=== PATIENT | male | born 1955 | race Caucasian/White ===

== ENCOUNTER 2023-02-18 09:16 | Outpatient (OUT) | payer MEDICARE, OTHER, SELFPAY ==
[2023-02-18 09:47] LABS: Estimated Average Glucose 114 mg/dL; Glycohemoglobin A1C 5.6 % (4.5-6.2)
[2023-02-18 09:59] LABS: Basophils Absolute Auto 0.1 10^3/uL (0.0-0.1); Basophils Percent Auto 1.2 % (0.2-2.0); Eosinophils Absolute Auto 0.2 10^3/uL (0.0-0.7); Hematocrit 49.2 % (42.0-54.0); Hemoglobin 16.8 g/dL (14.0-18.0); Immature Granulocytes Abs Auto 0.04 10^3/uL (0.00-0.03); Immature Granulocytes Pct Auto 0.7 % (0.0-0.5); Lymphocytes Absolute Auto 1.2 10^3/uL (1.2-3.8); Lymphocytes Percent Auto 20.8 % (20.5-60.0); Mean Corpuscular HGB Conc 34.1 g/dL (29.9-35.2); Mean Corpuscular Hemoglobin 33.2 pg (25.9-34.0); Mean Corpuscular Volume 97.2 fL (80.0-94.0); Mean Platelet Volume 10.2 fL (9.5-13.5); Monocytes Absolute Auto 0.6 10^3/uL (0.3-0.8); Monocytes Percent Auto 10.8 % (1.7-12.0); Neutrophils Absolute Auto 3.8 10^3/uL (1.4-6.5); Neutrophils Percent Auto 63.5 % (43.0-75.0); Platelet Count 216 10^3/uL (150-450); Red Blood Count 5.06 10^6/uL (4.70-6.10); White Blood Count 5.9 10^3/uL (4.0-11.0)
[2023-02-18 11:00] LABS: Alanine Aminotransferase 20 U/L (16-63); Albumin Globulin Ratio 1.1; Albumin Level 3.7 g/dL (3.4-5.0); Alkaline Phosphatase 98 U/L (46-116); Anion Gap 11.6; Aspartate Amino Transferase 23 U/L (15-37); BUN Creatinine Ratio 15.8; Bilirubin Total 0.7 mg/dL (0.2-1.0); Calcium 9.2 mg/dL (8.5-10.1); Carbon Dioxide 24.7 mmol/L (21.0-32.0); Chloride 107 mmol/L (98-107); Estimated GFR (African America >60 (>=60); Estimated GFR (Non-African Ame >60 (>=60); Globulin 3.3 g/dL; Glucose 109 mg/dL (74-106); Potassium 4.3 mmol/L (3.5-5.1); Sodium 139 mmol/L (136-145)
[2023-02-18 11:01] LABS: Prostate Specific Antigen Scrn 1.34 ng/mL (<=4.00)
[2023-02-18 11:09] LABS: Cholesterol 139 mg/dL (<=200); Free T3 2.31 pg/mL (2.18-3.98); HDL Cholesterol 47 mg/dL (40-60); LDL Cholesterol Calculated 69.4 mg/dL; Thyroid Stimulating Hormone 1.736 uIU/mL (0.358-3.740); Triglycerides 113 mg/dL (<=150); VLDL CHOLESTEROL 22.6 mg/dL
== END 2023-02-18 09:17 | disposition home or self-care (01) ==
LOC: LAB 09:21
PROVIDERS: PCP Family Medicine; Visit Provider Family Medicine
DX: R41.82 Altered mental status, unspecified (principal); R40.20 Unspecified coma; G93.9 Disorder of brain, unspecified; E78.5 Hyperlipidemia, unspecified; R73.09 Other abnormal glucose; Z12.5 Encounter for screening for malignant neoplasm of prostate
CPT/HCPCS: 36415; 80053; 80061; 83036; 84436; 84443; 84481; 85025; G0103

== ENCOUNTER 2023-02-23 13:03 | Outpatient (OUT) | payer MEDICARE, OTHER, SELFPAY ==
--- NOTE | 2023-02-23 13:15 | MR_ITS ---
The [address] [address] Patient Name: STEVE RASCON MRN: [id number] date: 1955 Sex: M Assigned Patient Location: MRI Current Patient Location: MRI Accession/Order Number: [id number] Exam Date: 02/23/2023 14:07 Report Date: 02/24/2023 09:24 At the request of: FUNMILAYO GARCIA Procedure: MR head/brain wo/w con MRI BRAIN WITH AND WITHOUT CONTRAST, 02/23/2023. HISTORY: Altered mental status. Brain mass. COMPARISON: MRI brain with and without contrast, 12/05/2020. TECHNIQUE: Multiplanar, multisequence MRI imaging of the brain with and without contrast. FINDINGS: Paranasal sinuses clear. Mastoid air cells clear. Nasopharynx normal. 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 Orbital contents unremarkable. Moderate brain atrophy stable. No hydrocephalus. No extra-axial fluid collections. No mass effect. Mild chronic microvascular ischemic changes in the cerebral white matter are stable. No diffusion restriction. No evidence of acute ischemic infarction. T2 gradient images show no hemorrhagic lesions. No pathologic enhancement in the brain. There is a small enhancing dural based extra-axial lesion over the right frontal lobe measuring approximately 7 x 8 x 10 mm. This is slightly larger previously measuring 5 x 7 x 10 mm. No mass effect of the brain. No new intracranial masses. MR/MR head/brain wo/w con IMPRESSION: 1. Small meningioma over the right frontal lobe measuring 10 mm in greatest dimension is slightly larger than on the previous exam. No mass effect of the brain or vasogenic edema in the brain. 2. No new masses. 3. Moderate brain atrophy and mild chronic microvascular ischemic changes stable. No acute infarction. No hydrocephalus. Electronically authenticated by: REGINA BISHOP Date: 02/24/2023 09:24
--- NOTE | 2023-02-23 13:18 | US_ITS ---
[address] [address] Patient Name: STEVE RASCON MRN: [id number] date: 1955 Sex: M Assigned Patient Location: MRI Current Patient Location: MRI Accession/Order Number: [id number] Exam Date: 02/23/2023 13:20 Report Date: 02/23/2023 20:03 At the request of: FUNMILAYO GARCIA Procedure: US carotid duplex BI EXAMINATION: US carotid duplex BI HISTORY: Bilateral Occlusive Disease COMPARISON: No relevant comparison available. TECHNIQUE: Duplex Doppler ultrasound analysis of carotid and vertebral arteries. . Bilateral carotid arterial duplex examination was performed using B-mode, color flow and spectral analysis. Carotid stenosis is reported according to validated velocity parameters, similar to NASCET criteria. FINDINGS: RIGHT CAROTID ARTERY Mild atherosclerotic plaque Subclavian: PSV: 81.1 cm/s cm/s EDV: 7.8 cm/s cm/s CCA: Prox: PSV: 58.6 cm/s cm/s EDV: 7.2 cm/s cm/s Mid: PSV: 59.0 cm/s cm/s EDV: 9.2 cm/s cm/s Distal: PSV: 59.7 cm/s cm/s EDV: 9.9 cm/s cm/s BULB: PSV: 27.0 cm/s cm/s EDV: 5.6 cm/s cm/s ICA: Prox: PSV: 47.6 cm/s cm/s EDV: 11.3 cm/s cm/s Mid: PSV: 58.3 cm/s cm/s EDV: 14.2 cm/s cm/s Distal: PSV: 52.6 cm/s cm/s EDV: 8.5 cm/s cm/s ECA: PSV: 82.2 cm/s cm/s EDV: 6.3 cm/s cm/s VERTEBRAL: PSV: 49.6 cm/s cm/s EDV: 8.6 cm/s cm/s ICA/CCA ratio: PSV: 1.0 EDV: 1.4 LEFT CAROTID ARTERY mild atherosclerotic plaque Subclavian: PSV: 94.0 cm/s cm/s EDV: 12.6 cm/s CCA: Prox: PSV: 92.7 cm/s cm/s EDV: 13.7 cm/s Mid: PSV: 96.5 cm/s cm/s EDV: 15.0 cm/s Distal: PSV: 66.8 cm/s cm/s EDV: 12.4 cm/s BULB: PSV: 45.9 cm/s cm/s EDV: 9.2 cm/s ICA: Prox: PSV: 56.4 cm/s cm/s EDV: 13.6 cm/s Mid: PSV: 75.4 cm/s cm/s EDV: 16.0 cm/s Distal: PSV: 74.3 cm/s cm/s EDV: 17.1 cm/s ECA: PSV: 108.1 cm/s cm/s EDV: 6.3 cm/s VERTEBRAL: PSV: 48.8 cm/s cm/s EDV: 10.4 cm/s ICA/CCA ratio: PSV: 1.1 EDV: 1.3 IMPRESSION: 0-49% flow stenosis bilateral internal carotid arteries Spectral Doppler US Thresholds (Reference: Ceasar EG, et al. Radiology 2000; 214:247-252) Stenosis (%) PSV (cm/sec) VICA/VCCA 0-49 <150 <2.5 50-69 150-225 2.5-4.0 >70 >225 >4.0 Electronically authenticated by: RADHA WELLER Date: 02/23/2023 20:03
== END 2023-02-23 13:04 | disposition home or self-care (01) ==
LOC: MRI 13:03
PROVIDERS: PCP Family Medicine; Visit Provider Family Medicine
DX: R41.82 Altered mental status, unspecified (principal); R40.20 Unspecified coma; G93.9 Disorder of brain, unspecified; J44.9 Chronic obstructive pulmonary disease, unspecified; I65.23 Occlusion and stenosis of bilateral carotid arteries
CPT/HCPCS: 70553; 93880; A9575

== ENCOUNTER 2023-02-27 12:48 | Outpatient (OUT) | payer MEDICARE, OTHER, SELFPAY ==
--- NOTE | 2023-02-27 13:25 | CA_ITS ---
Patient: STEVE RASCON Exam Date: 02/27/2023 : 1955 Gender:M Ordering : DR Shun Dorsey . Admission #: [id number] Family : DR LANA SAAVEDRA D.O. Order #: [id number] CLICK HERE TO VIEW EXAM ECHOCARDIOGRAM REPORT PROCEDURE: CA ECHO DOPPLER COMPLETE INDICATIONS: Loss of consciousness, altered mental status change, mechanical mitral and aortic valve, hypertension, smoker, COPD COMPARISON: None. DESCRIPTION: COMPLETE ECHOCARDIOGRAM Real-time transthoracic echocardiography with 2D, M-mode, spectral and color flow Doppler performed. QUALITY: Technical quality was fair. LEFT VENTRICLE: Normal chamber size. Mild concentric left ventricular hypertrophy. Normal systolic function. LV EF: Normal left ventricular ejection fraction, (>55%). DIASTOLIC: ATRIAL SEPTUM: LEFT ATRIUM: Mildly dilated. RIGHT ATRIUM: Normal chamber size. RIGHT VENTRICLE: Normal chamber size. Normal right ventricular systolic function. TRICUSPID VALVE: Normal mobility and thickness. No stenosis with no regurgitation. MITRAL VALVE: Mechanical valve with normal flow. No mitral regurgitation. AORTIC VALVE: Mechanical valve with normal flow. Trivial aortic regurgitation. AORTIC ROOT: Normal diameter and appearance. PULMONIC VALVE: Normal thickness and mobility. No stenosis. No regurgitation. PERICARDIUM: No evidence of pericardial effusion. IVC: Collapses with inspirations. PLEURA: CONCLUSION: 1. Mild concentric left ventricular hypertrophy. Normal left ventricular systolic function. LVEF is 55 to 60%. 2. Normal right ventricular size and systolic function. 3. Mechanical valve in the aortic position with normal Doppler flows and no significant regurgitation. 4. Mechanical valve in the mitral position with normal Doppler flows and no significant regurgitation. 5. No pericardial effusion. Adult Echocardiography Procedure Report Left Ventricle LVEDD (3.7 - 5.6 cm): 3.88 cm LVESD (2.2 - 4.0 cm): 2.95 cm LVIVS thickness (0.6 - 1.2 cm): 1.20 cm LVPW thickness (0.5 - 1.0 cm): 1.14 cm LVOT Max Gradient: 2.33 mm[Hg] LVOT Area (cm2): 0.76 m/s Peak Velocity (LVOT): 0.76 m/s Mean Velocity (LVOT): 0.51 m/s LVOT Diameter 1.38 cm Left Atrium LA Volume Index (2D A2C): 30.81 ml/m2 Mitral Valve MV E to A Ratio: 1.01 Mitral Valve A-Wave Peak Velocity: 1.08 m/s Mitral Valve E-Wave Peak Velocity: 1.09 m/s Right Ventricle Aorta AO Root Diam: 3.25 cm Aortic Valve AoV Area (Peak [place]): 0.72 cm2, 0.72 cm2 AoV Area (VTI): 0.74 cm2, 0.74 cm2 Peak Velocity(Antegrade Flow): 1.60 m/s Peak Gradient(Antegrade Flow): 10.18 mm[Hg] Mean Velocity(Antegrade Flow): 1.07 m/s Mean Gradient(Antegrade Flow): 5.32 mm[Hg] Velocity Time Integral: 30.46 cm Tricuspid Valve Pulmonic Valve Mean Gradient: 1.55 mm[Hg] Mean Velocity: 0.60 m/s Peak Velocity: 0.77 m/s, 0.83 m/s Peak Gradient: 2.74 mm[Hg], 2.36 mm[Hg] Right Atrium Right Atrium Systolic Pressure: 28.12 ml, 28.12 ml Dictated by: Dusty Boyle M.D. on 03/04/2023 at 17:35 Approved by: Dusty Boyle M.D. on 03/04/2023 at 17:47
--- NOTE | 2023-02-27 13:26 | CT_ITS ---
[address] [address] Patient Name: STEVE RASCON MRN: [id number] date: 1955 Sex: M Assigned Patient Location: CARD Current Patient Location: CARD Accession/Order Number: [id number] Exam Date: 02/27/2023 13:40 Report Date: 02/27/2023 14:39 At the request of: FUNMILAYO GARCIA Procedure: CT lung screening low-dose EXAMINATION: CT lung screening low-dose HISTORY: COPD J44.9 COMPARISON: 12/05/2020 TECHNIQUE: Axial, Coronal, and Sagittal images were created without the administration of IV contrast material. Dose reduction techniques were achieved by using automated exposure control and/or adjustment of mA and/or kV according to patient size and/or use of iterative reconstruction technique. FINDINGS: LUNGS: Moderate diffuse centrilobular emphysema with an upper lobe predominance. A few scattered ill-defined densities are noted the largest is in the right middle lobe measuring 1.2 x 0.7 cm. PLEURA: No mass, effusion, or pneumothorax. VASCULATURE: No abnormality. OLIVIA: No mass or pathologic adenopathy. MEDIASTINUM: No mass or pathologic adenopathy. CARDIAC: No enlargement or pericardial effusion. Moderate coronary atherosclerosis. Mitral and aortic valve replacements AORTA: No aortic aneurysm. Moderate diffuse atherosclerosis CHEST WALL: No mass or axillary adenopathy BONES: No bone lesion or fracture. LIMITED ABDOMEN: Surgical clips from cholecystectomy OTHER: Negative. CT/CT lung screening low-dose IMPRESSION: Scattered patchy opacities slightly increased in the right middle lobe. 6 month follow-up is recommended to document stability LUNG SCREENING: Lung-RADS Category 3- Probably benign. Probably benign finding(s)- short term follow up suggested; includes nodules with a low likelihood of becoming a clinically active cancer. Six month LDCT. Electronically authenticated by: RADHA WELLER Date: 02/27/2023 14:39
== END 2023-02-27 12:49 | disposition home or self-care (01) ==
LOC: CARD 12:48
PROVIDERS: PCP Family Medicine; Visit Provider Family Medicine
DX: R41.82 Altered mental status, unspecified (principal); R40.20 Unspecified coma; G93.9 Disorder of brain, unspecified; J43.2 Centrilobular emphysema; Z95.2 Presence of prosthetic heart valve; I25.10 Atherosclerotic heart disease of native coronary artery without angina pectoris; F17.210 Nicotine dependence, cigarettes, uncomplicated
CPT/HCPCS: 71271; 93306

== ENCOUNTER 2023-07-10 11:50 | Outpatient (OUT) | payer MEDICARE, OTHER, SELFPAY ==
--- NOTE | 2023-07-10 12:06 | MR_ITS ---
The [address] [address] Patient Name: STEVE RASCON MRN: [id number] date: 1955 Sex: M Assigned Patient Location: LAB Current Patient Location: LAB Accession/Order Number: [id number] Exam Date: 07/10/2023 12:10 Report Date: 07/10/2023 14:39 At the request of: FUNMILAYO DORSEY Procedure: MR head/brain wo/w con EXAM: MR head/brain wo/w con HISTORY: Altered Mental Status R41.82 COMPARISON: MRI brain 02/23/2023 TECHNIQUE: Multisequence MRI brain was performed with and without intravenous contrast. FINDINGS: There is a small focus of restricted diffusion in the left putamen associated with hyperintense T2/FLAIR signal abnormality. No additional restricted diffusion is identified elsewhere. There is no midline shift, mass effect, or abnormal extraaxial fluid collections. Redemonstrated is a 1 x 0.8 cm dural based right frontal extra-axial homogeneously enhancing well-defined lesion, unchanged since 02/23/2023, in keeping with a small meningioma. There are no new abnormal parenchymal or leptomeningeal enhancement. The cortical sulci and ventricular system are mildly enlarged, consistent with age appropriate cerebral atrophy. Multiple nonspecific scattered foci of T2/FLAIR signal abnormality are identified in the subcortical and periventricular white matter, likely reflect chronic microvascular ischemic changes. The major intracranial flow voids are visualized. The cerebellar tonsils are normal in position. The orbits demonstrate no suspicious enhancement or any focal lesions. The paranasal sinuses and mastoid air cells are clear. The calvarium and extracranial soft tissues are unremarkable. MR/MR head/brain wo/w con IMPRESSION: Acute lacunar infarct in the left putamen. A small right frontal meningioma without mass effect, unchanged since 02/23/2023. No new abnormal intracranial enhancement. Mild chronic microvascular ischemia and involutional changes. Critical finding was conveyed to Dr. Funmilayo Dorsey at the time of dictation. Electronically authenticated by: DEMETRIA KIM Date: 07/10/2023 14:39
[2023-07-10 12:21] LABS: Estimated GFR (African America >60 (>=60); Estimated GFR (Non-African Ame >60 (>=60)
== END 2023-07-10 11:51 | disposition home or self-care (01) ==
LOC: LAB 11:50
PROVIDERS: PCP Family Medicine; Visit Provider Family Medicine
DX: R41.82 Altered mental status, unspecified (principal); I63.81 Other cerebral infarction due to occlusion or stenosis of small artery; D32.0 Benign neoplasm of cerebral meninges; I67.82 Cerebral ischemia
CPT/HCPCS: 36415; 70553; 82565; A9575

== ENCOUNTER 2023-07-15 06:57 | Outpatient (OUT) | payer MEDICARE, OTHER, SELFPAY ==
--- NOTE | 2023-07-15 06:57 | PCN_ITS ---
EEG ? Procedure Date:? 07/15/2023 ? Routine EEG performed on a 68-year-old male using standard 10/20 lead placement in the [employer] system.? All data was obtained digitally and is available for reformatting and remontaging.? ? There is a posterior dominant rhythm that at times reaches the 9 Hz alpha range and 10-20 microvolt amplitude range recorded in the occipital leads symmetrically during rest and wakefulness.? This rhythm attenuates with eye opening.? There is beta activity in the 15-20 Hz range and less than 20 microvolt amplitude range, recorded in the frontal sensory regions infrequently during the record.? ? There is attenuation of the background rhythm, rolling eye movements, attenuation of muscle artifact, generalized slowing, consistent with stage 1 sleep, which occurred in approximately 20% of the record.? ? There is no epileptiform activity recorded during the record.? There are no seizures recorded during the record.? ? There is no abnormal slowing recorded during the record. ? IMPRESSION:? This is a normal routine EEG. MTDD
--- NOTE | 2023-07-15 08:13 | CT_ITS ---
The [address] [address] Patient Name: STEVE RASCON MRN: [id number] date: 1955 Sex: M Assigned Patient Location: CARD Current Patient Location: CARD Accession/Order Number: [id number] Exam Date: 07/15/2023 08:42 Report Date: 07/15/2023 10:33 At the request of: FUNMILAYO GARCIA Procedure: CT angio neck EXAMINATION: CT angio neck HISTORY: Altered Mental Status R41.82 COMPARISON: None. TECHNIQUE: Contrast enhanced neck CT arteriogram was performed. Scanning performed during the arterial phase from the thoracic inlet to the [place]. 3D reconstructions were rendered on a separate 3D workstation to evaluate vascular anatomy. Dose reduction techniques were achieved by using automated exposure control and/or adjustment of mA and/or kV according to patient size and/or use of iterative reconstruction technique. Carotid stenosis was measured utilizing NASCET criteria. FINDINGS: NECK FINDINGS: No acute soft tissue abnormalities in the neck. Airway is patent. Normal thyroid. Mild biapical scarring. Centrilobular emphysematous changes. Multilevel cervicothoracic spondylotic changes. ACDF at C5-C6. VASCULATURE FINDINGS: Arch and Subclavian Arteries: Standard three vessel arch. Subclavian arteries are patent bilaterally. Mild scattered mixed atherosclerotic plaque without high-grade narrowing. Common Carotids: Normal bilaterally. ICAs: Patent bilaterally to the petrous segments. Vertebral Arteries: Normal to the confluence with the basilar artery. Left dominant vertebral system. Basilar Artery: Partially visualized segments are normal. CT/CT angio neck IMPRESSION: No large vessel arterial occlusion, high-grade narrowing, or substantial luminal irregularity in the neck. Electronically authenticated by: PATRICIA GARCIA Date: 07/15/2023 10:33
== END 2023-07-15 06:58 | disposition home or self-care (01) ==
LOC: CARD 06:57
PROVIDERS: PCP Family Medicine; Visit Provider Family Medicine
DX: R41.82 Altered mental status, unspecified (principal)
CPT/HCPCS: 70498; 95819; Q9967

== ENCOUNTER 2024-04-12 13:55 | Outpatient (OUT) | payer MEDICARE, OTHER, SELFPAY ==
[2024-04-12 14:20] LABS: Basophils Absolute Auto 0.1 10^3/uL (0.0-0.1); Eosinophils Absolute Auto 0.1 10^3/uL (0.0-0.7); Eosinophils Percent Auto 2.4 % (0.9-7.0); Hematocrit 47.7 % (42.0-54.0); Hemoglobin 16.5 g/dL (14.0-18.0); Immature Granulocytes Abs Auto 0.02 10^3/uL (0.00-0.03); Immature Granulocytes Pct Auto 0.3 % (0.0-0.5); Lymphocytes Absolute Auto 1.7 10^3/uL (1.2-3.8); Lymphocytes Percent Auto 28.1 % (20.5-60.0); Mean Corpuscular HGB Conc 34.6 g/dL (29.9-35.2); Mean Corpuscular Hemoglobin 32.9 pg (25.9-34.0); Mean Corpuscular Volume 95.2 fL (80.0-94.0); Mean Platelet Volume 10.2 fL (9.5-13.5); Monocytes Absolute Auto 0.7 10^3/uL (0.3-0.8); Monocytes Percent Auto 11.9 % (1.7-12.0); Neutrophils Absolute Auto 3.3 10^3/uL (1.4-6.5); Neutrophils Percent Auto 56.3 % (43.0-75.0); Platelet Count 218 10^3/uL (150-450); Red Blood Count 5.01 10^6/uL (4.70-6.10); Red Cell Distribution Width 13.7 % (11.0-15.0); White Blood Count 5.9 10^3/uL (4.0-11.0)
--- NOTE | 2024-04-12 14:28 | CT_ITS ---
[address] [address] Patient Name: STEVE RASCON MRN: [id number] date: 1955 Sex: M Assigned Patient Location: CT Current Patient Location: Accession/Order Number: [id number] Exam Date: 04/12/2024 14:24 Report Date: 04/13/2024 12:39 At the request of: FUNMILAYO GARCIA Procedure: CT lung screening low-dose EXAMINATION: CT lung screening low-dose HISTORY: Chronic Obstructive Pulmonary Disease COMPARISON: CT LUNG CANCER SCREENING 02/27/2023 TECHNIQUE: Axial, Coronal, and Sagittal images were created without the administration of IV contrast material. Dose reduction techniques were achieved by using automated exposure control and/or adjustment of mA and/or kV according to patient size and/or use of iterative reconstruction technique. FINDINGS: LUNGS: Mild/moderate emphysematous changes. No suspicious nodules or acute infiltrates. PLEURA: No mass, effusion, or pneumothorax. VASCULATURE: No abnormality. OLIVIA: No mass or pathologic adenopathy. MEDIASTINUM: No mass or pathologic adenopathy. CARDIAC:Prior aortic valve and mitral valve replacement. No enlargement, pericardial thickening, or pericardial effusion. Coronary Artery calcifications: Coronary calcifications are mild. AORTA: No aneurysm or dissection. CHEST WALL: No mass or axillary adenopathy BONES: Mechanical fusion of the visible lower cervical spine. No bone lesion or fracture. LIMITED ABDOMEN: No suspicious findings. Limited images of the upper abdomen. OTHER: Negative. CT/CT lung screening low-dose IMPRESSION: 1. Lung-RADS Category 1 Negative. No nodules and definitely benign nodules. Continue annual screening with LDCT in 12 months. Electronically authenticated by: ELIZABETH GARCIA Date: 04/13/2024 12:39
[2024-04-13 09:40] LABS: Alanine Aminotransferase 21 U/L (16-63); Albumin Globulin Ratio 1.2; Albumin Level 3.7 g/dL (3.4-5.0); Alkaline Phosphatase 103 U/L (46-116); Anion Gap 12.7; Aspartate Amino Transferase 19 U/L (15-37); Bilirubin Total 0.8 mg/dL (0.2-1.0); Chloride 105 mmol/L (98-107); Chol HDL Ratio 2.3; Cholesterol 122 mg/dL (<=200); Estimated GFR (African America >60 (>=60); Estimated GFR (Non-African Ame >60 (>=60); Free T3 2.55 pg/mL (2.18-3.98); Globulin 3.1 g/dL; Glucose 85 mg/dL (74-106); HDL Cholesterol 53 mg/dL (40-60); LDL Cholesterol Calculated 52.6 mg/dL; Potassium 3.7 mmol/L (3.5-5.1); Sodium 140 mmol/L (136-145); Thyroid Stimulating Hormone 1.564 uIU/mL (0.358-3.740); Total Protein 6.8 g/dL (6.4-8.2); Triglycerides 82 mg/dL (<=150); VLDL CHOLESTEROL 16.4 mg/dL
[2024-04-13 09:57] LABS: Prostate Specific Antigen Scrn 1.23 ng/mL (<=4.00)
[2024-04-13 10:46] LABS: Estimated Average Glucose 103 mg/dL; Glycohemoglobin A1C 5.2 % (4.5-6.2)
== END 2024-04-12 13:56 | disposition home or self-care (01) ==
LOC: CT 13:56
PROVIDERS: PCP Family Medicine; Visit Provider Family Medicine
DX: J44.9 Chronic obstructive pulmonary disease, unspecified (principal); Z12.2 Encounter for screening for malignant neoplasm of respiratory organs; F17.210 Nicotine dependence, cigarettes, uncomplicated; E78.5 Hyperlipidemia, unspecified; I25.810 Atherosclerosis of coronary artery bypass graft(s) without angina pectoris; I10 Essential (primary) hypertension; E78.2 Mixed hyperlipidemia; G93.9 Disorder of brain, unspecified; R53.83 Other fatigue; R73.09 Other abnormal glucose; E03.9 Hypothyroidism, unspecified; Z12.5 Encounter for screening for malignant neoplasm of prostate
CPT/HCPCS: 36415; 71271; 80053; 80061; 83036; 84436; 84443; 84481; 85025; G0103

== ENCOUNTER 2024-04-17 17:04 | Emergency (ER) | payer MEDICARE, OTHER, SELFPAY ==
[2024-04-17] VITALS (16 sets, daily range): BP systolic 130–169; BP diastolic 56–75; PULSE 62–83; TEMP 36.6; O2SAT 94–98; BMI 22.6
--- NOTE | 2024-04-17 17:06 | ECG_ITS ---
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
--- NOTE | 2024-04-17 17:13 | ED_ITS ---
HPI - Seizure General Chief Complaint: Seizure Stated Complaint: Seizure Time Seen by Provider: 04/17/24 17:06 Source: patient Mode of arrival: ambulance History of Present Illness HPI Narrative: 69-year-old male with history of seizure disorder is coming to us by the EMS after he had a seizure before arrival, by the time the EMS got there to the home of the patient the patient was postictal, upon arrival to the ER the patient is awake not having any complaint and he is oriented x 3, the patient did not mention that he woke up this morning with vertigo which she have a history of but had not had any episodes of vertigo for the last 4 years, the patient took some meclizine and he did not take his medication for seizure which is Keppra and he was sleeping all day when he woke up with a seizure The patient denies any fever chills or any other complaints He also denies any symptoms of being sick over the last few days as well He mentioned that he also have a chronic that there is no changes in that over the last few days Related Data Home Medications ?Medication ?Instructions ?Recorded ?Confirmed amlodipine 5 mg tablet mg 04/17/24 atorvastatin 40 mg tablet mg 04/17/24 levetiracetam 500 mg tablet mg PO 04/17/24 meclizine 25 mg tablet mg 04/17/24 warfarin 4 mg tablet mg 04/17/24 Allergies Allergy/AdvReac Type Severity Reaction Status Date / Time No Known Drug Allergies Allergy Verified 04/17/24 17:09 Review of Systems ROS Status of ROS 10 or more systems reviewed and unremark able except as noted in history and below PFSH PFSH Social History Little interest or pleasure in doing things: not at all Feeling down, depressed, or hopeless: not at all Exam Narrative Exam Narrative: Nurses notes and vital signs reviewed and patient is not hypoxic. General: Well-appearing and in no apparent distress. Skin: Warm, dry, no pallor noted. No rash. Head: Normocephalic, atraumatic. Neck: Supple, non-tender. Eye: Pupils are equal, round and EOMI. No scleral icterus. Ears, Nose, Mouth, and Throat: TM are clear, no nasal mucosal hypertrophy. Oral mucosa is moist, no posterior oropharynx erythema, uvula is mid-line Cardiovascular: Regular Rate and Rhythm without murmur, gallop or rub. Respiratory: No accessory muscle use or respiratory distress. Lungs are clear to auscultation, no wheezing, rales or rhonchi Chest Wall: no tenderness Back: No midline thoracic or lumbar vertebral tenderness. No CVA tenderness Musculoskeletal: normal ROM, no calf or popliteal tenderness, no lower extremity edema/swelling GI: Abdomen is soft, non-distended. Normal bowel sounds. No masses appreciated. No tenderness to palpation. No rebound, guarding, or rigidity noted. Neurological: A&O x4. No cranial nerve dysfunction observed. No truncal ataxia. Moves all extremities. Sensation intact. Psychiatric: Cooperative and interactive. Normal mood and affect. Constitutional Vital Signs, click to edit/add: Last Vital Signs Temp 98 F 04/17/24 17:10 Pulse 71 04/17/24 18:20 Resp 16 04/17/24 18:20 BP 169/69 H 04/17/24 17:14 Pulse Ox 96 04/17/24 18:20 O2 Del Method Room Air 04/17/24 17:10 Course Vital Signs Vital signs: Vital Signs Blood Pressure 146/75 H 04/17/24 17:07 Temperature 98 F 04/17/24 17:10 Pulse Rate 71 04/17/24 18:20 Respiratory Rate 16 04/17/24 18:20 Blood Pressure 169/69 H 04/17/24 17:14 Pulse Oximetry 96 04/17/24 18:20 Oxygen Delivery Method Room Air 04/17/24 17:10 MDM - Seizure MDM Narrative Medical decision making narrative: Right now the patient have no complaints his EKG in the ER showing sinus rhythm with a heart rate of [address] elevation or depression The patient CBC and chemistry showed no acute pathology as well as the CAT scan of the brain The patient have no vertigo anymore and he had no complaint in the ER while eleonora lopes monitored The patient was provided 1 dose of IV Keppra in the ER he will be discharged to continue taking his medication at home The patient is to follow up with primary care physician in next 2-3 days or to return to the emergency department should any of the signs or symptoms worsen or new symptoms develop. The patient agrees with the following Diagnosis and Treatment plan and the patient will be discharged home. Lab Data Labs: Lab Results 04/17/24 Range/Units 17:21 WBC 8.3 (4.0-11.0) 10^3/uL RBC 5.11 (4.70-6.10) 10^6/uL Hgb 17.4 (14.0-18.0) g/dL Hct 48.3 (42.0-54.0) % MCV 94.5 H (80.0-94.0) fL MCH 34.1 H (25.9-34.0) pg MCHC 36.0 H (29.9-35.2) g/dL RDW 13.4 (11.0-15.0) % Plt Count 210 (150-450) 10^3/uL MPV 10.9 (9.5-13.5) fL Neut % (Auto) 87.8 H (43.0-75.0) % Lymph % (Auto) 7.4 L (20.5-60.0) % [place] % (Auto) 4.0 (1.7-12.0) % Eos % (Auto) 0.0 L (0.9-7.0) % Baso % (Auto) 0.4 (0.2-2.0) % Neut # (Auto) 7.3 H (1.4-6.5) 10^3/uL Lymph # (Auto) 0.6 L (1.2-3.8) 10^3/uL [place] # (Auto) 0.3 (0.3-0.8) 10^3/uL Eos # (Auto) 0.0 (0.0-0.7) 10^3/uL Baso # (Auto) 0.0 (0.0-0.1) 10^3/uL Abs Immat Gran (auto) 0.03 (0.00-0.03) 10^3/uL Imm/Tot Granulo (auto) 0.4 (0.0-0.5) % PT 21.2 H (9.0-11.6) sec INR 2.16 Sodium 137 (136-145) mmol/L Potassium 3.9 (3.5-5.1) mmol/L Chloride 103 (98-107) mmol/L Carbon Dioxide 25.2 (21.0-32.0) mmol/L Anion Gap 12.7 BUN 16.0 (7.0-18.0) mg/dL Creatinine 0.97 (0.70-1.30) mg/dL Est GFR ( Amer) >60 (>=60) Est GFR (Non-Af Amer) >60 (>=60) BUN/Creatinine Ratio 16.5 Glucose 140 H (74-106) mg/dL Calcium 9.3 (8.5-10.1) mg/dL Magnesium 1.9 (1.8-2.4) mg/dL Total Bilirubin 0.7 (0.2-1.0) mg/dL AST 16 (15-37) U/L ALT 16 (16-63) U/L Alkaline Phosphatase 123 H (46-116) U/L Total Protein 7.1 (6.4-8.2) g/dL Albumin 3.7 (3.4-5.0) g/dL Globulin 3.4 g/dL Albumin/Globulin Ratio 1.1 Discharge Plan Discharge Stand Alone Forms: Portal Instructions Chief Complaint: Seizure Clinical Impression: Seizure Patient Disposition: Home, Self-Care Time of Disposition Decision: 18:59 Condition: Good Prescriptions / Home Meds: No Action atorvastatin 40 mg tablet levetiracetam 500 mg tablet PO amlodipine 5 mg tablet warfarin 4 mg tablet meclizine 25 mg tablet Print Language: Iranian Instructions: Epilepsy in Older Adults (ED) Referrals: Shun Dorsey MD [Primary Care Provider] - 1 week
--- NOTE | 2024-04-17 17:18 | CT_ITS ---
The [address] [address] Patient Name: STEVE RASCON MRN: [id number] date: 1955 Sex: M Assigned Patient Location: ER Current Patient Location: [facility] Accession/Order Number: [id number] Exam Date: 04/17/2024 17:55 Report Date: 04/17/2024 19:02 At the request of: WINIFRED MILLS Procedure: CT head/brain wo con CT head without contrast, 04/17/2024. HISTORY: Seizure. COMPARISON: MRI brain, 07/10/2023. TECHNIQUE: Noncontrast axial CT images obtained through the head. Reconstructions obtained in the sagittal and coronal planes. Dose reduction techniques were achieved by using automated exposure control and/or adjustment of mA and/or kV according to patient size and/or use of iterative reconstruction technique. FINDINGS: The paranasal sinuses are clear. Mastoid air cells are clear. Middle ear cavities clear. Skull base intact. No skull lesion. Orbital contents normal. Extracranial soft tissue structures are unremarkable. Small chronic lacunar infarct in the body of the caudate nucleus on the left. Chronic lacunar infarct in the lentiform nucleus on the left. No hydrocephalus. No extraaxial fluid collection or mass effect. Rios matter and white matter differentiation appears normal. No hemorrhage. There is a small partially calcified meningioma over the right frontal lobe measuring approximately 1 cm in diameter. This is stable from prior MRI of the brain. No mass effect on the brain. CT/CT head/brain wo con IMPRESSION: 1. No acute findings. No hemorrhage. 2. Small calcified meningioma over the right frontal lobe measuring 1 cm in diameter. This is stable from prior MRI of the brain. Electronically authenticated by: REGINA BISHOP Date: 04/17/2024 19:02
[2024-04-17] MEDS: 0.9 % SODIUM CHLORIDE 1,000 ML 1000 ML IV (17:19)
[2024-04-17] MEDS: LEVETIRACETAM 1,000 MG in 0.9 % SODIUM CHLORIDE 100 ML 440 MG IV (17:33)
[2024-04-17 17:43] LABS: Basophils Percent Auto 0.4 % (0.2-2.0); Hematocrit 48.3 % (42.0-54.0); Hemoglobin 17.4 g/dL (14.0-18.0); Immature Granulocytes Abs Auto 0.03 10^3/uL (0.00-0.03); Immature Granulocytes Pct Auto 0.4 % (0.0-0.5); Lymphocytes Absolute Auto 0.6 10^3/uL (1.2-3.8); Lymphocytes Percent Auto 7.4 % (20.5-60.0); Mean Corpuscular Hemoglobin 34.1 pg (25.9-34.0); Mean Corpuscular Volume 94.5 fL (80.0-94.0); Mean Platelet Volume 10.9 fL (9.5-13.5); Monocytes Absolute Auto 0.3 10^3/uL (0.3-0.8); Neutrophils Absolute Auto 7.3 10^3/uL (1.4-6.5); Neutrophils Percent Auto 87.8 % (43.0-75.0); Platelet Count 210 10^3/uL (150-450); Red Blood Count 5.11 10^6/uL (4.70-6.10); Red Cell Distribution Width 13.4 % (11.0-15.0); White Blood Count 8.3 10^3/uL (4.0-11.0)
[2024-04-17 17:45] LABS: INR 2.16; Prothrombin Time 21.2 sec (9.0-11.6)
[2024-04-17 17:46] LABS: Magnesium 1.9 mg/dL (1.8-2.4)
[2024-04-17 18:01] LABS: Alanine Aminotransferase 16 U/L (16-63); Albumin Globulin Ratio 1.1; Albumin Level 3.7 g/dL (3.4-5.0); Alkaline Phosphatase 123 U/L (46-116); Anion Gap 12.7; Aspartate Amino Transferase 16 U/L (15-37); BUN Creatinine Ratio 16.5; Bilirubin Total 0.7 mg/dL (0.2-1.0); Calcium 9.3 mg/dL (8.5-10.1); Carbon Dioxide 25.2 mmol/L (21.0-32.0); Chloride 103 mmol/L (98-107); Estimated GFR (African America >60 (>=60); Estimated GFR (Non-African Ame >60 (>=60); Globulin 3.4 g/dL; Glucose 140 mg/dL (74-106); Potassium 3.9 mmol/L (3.5-5.1); Sodium 137 mmol/L (136-145); Total Protein 7.1 g/dL (6.4-8.2)
--- OUTSIDE RECORDS SUMMARY | 2024-04-17 18:03 | XMS_ITS | CCD ---
Author Organization [facility] CliniSyut Care Team Providers Care Machining Engineer Name Role Phone PHYSICIAN, DEFAULT Unavailable Unavailable PHYSICIAN, DEFAULT Unavailable Unavailable FUNMILAYO DORSEY Unavailable Unavailable HOY, DR MELLO Attending Unavailable HOY, DR MELLO Primary Care Unavailable HOY, DR MELLO Admitting Unavailable HOY, DR MELLO Attending Unavailable HOY, DR MELLO Consulting Unavailable HOY, DR MELLO Primary Care Unavailable HOY, DR MELLO Admitting Unavailable ZIEBER, DR ELIZABETH Tyson Consulting Unavailable HOY, DR MELLO Attending Unavailable HOY, DR MELLO Primary Care Unavailable HOY, DR MELLO Consulting Unavailable HOY, DR MELLO Admitting Unavailable Jama, Dorothy Consulting Unavailable HOY, DR MELLO Admitting Unavailable HOY, DR MELLO Attending Unavailable HOY, DR MELLO Consulting Unavailable HOY, DR MELLO Primary Care Unavailable KwongAngelica Consulting Unavailable MISC, DR SIMON Admitting Unavailable MISC, DR SIMON Attending Unavailable MISC, DR SIMON Consulting Unavailable HOY, DR EMLLO Primary Care Unavailable ZIEBER, DR ELIZABETH Tyson Consulting Unavailable Jamie, Alek Consulting Unavailable SUZANNEY, DR MELLO Primary Care Unavailable REQUEST, DR NORTON LISTED Admitting Unavaila ble REQUEST, NONE LISTED Attending Unavaila ble REQUEST, NONE LISTED Consulting Unavaila ble REQUEST, NONE LISTED Admitting Unavaila ble HOY, DR MELLO Primary Care Unavailable REQUEST, NONE LISTED Attending Unavaila ble REQUEST, NONE LISTED Consulting Unavaila ble Funmilayo Dorsey MD Primary Care Provider [phone] FUNMILAYO DORSEY Referring Unavailable FUNMILAYO DORSEY Primary Care Unavailable LEVAR ALLEN Attending Unavailable FUNMILAYO DORSEY Referring Unavailable FUNMILAYO DORSEY Primary Care Unavailable FUNMILAYO DORSEY Referring Unavailable FUNMILAYO DORSEY Primary Care Unavailable CORINA OLIVER Attending Unavailable LEVAR ALLEN Referring Unavailable FUNMILAYO DORSEY Primary Care Unavailable JESSICA MIRANDA I Attending Unavailable CORINA OLIVER Referring Unavailable HOY, FUNMILAYO M Primary Care Unavailable SERVICE, JOBST Referring Unavailable HOY, FUNMILAYO M Primary Care Unavailable SERVICE, JOBST Referring Unavailable HOY, FUNMILAYO M Primary Care Unavailable SERVICE, JOBST Referring Unavailable HOY, FUNMILAYO M Primary Care Unavailable SERVICE, JOBST Referring Unavailable HOY, FUNMILAYO M Primary Care Unavailable SERVICE, JOBST Referring Unavailable HOY, FUNMILAYO M Primary Care Unavailable SERVICE, JOBST Referring Unavailable HOY, FUNMILAYO M Primary Care Unavailable SERVICE, JOBST Referring Unavailable HOY, FUNMILAYO M Primary Care Unavailable SERVICE, JOBST Referring Unavailable HOY, FUNMILAYO M Primary Care Unavailable SERVICE, JOBST Referring Unavailable HOY, FUNMILAYO M Primary Care Unavailable SERVICE, JOBST Referring Unavailable HOY, FUNMILAYO M Primary Care Unavailable SERVICE, JOBST Referring Unavailable HOY, FUNMILAYO M Primary Care Unavailable Medications Current Medications Medication Drug Class(es) Dates Sig (Normalized) Sig (Original) amLODIPine 5 mg oral tablet (9 sources) Dihydropyridine Calcium Channel Elizabeth Start: 01-09-2023 take 1 tablet by mouth in the morning amLODIPine (NORVASC) 5 mg tablet Take 1 tablet (5 mg total) by mouth in the morning. 90 tablet 3 01/09/2023 Active aspirin 81 mg delayed release oral tablet (8 sources) Platelet Aggregation Inhibitor, Nonsteroidal Anti-inflammatory Drug Start: 07-16-2023 take 1 tablet by mouth in the morning aspirin 81 mg Take 1 tablet (81 mg total) by mouth in the morning. 0 07/16/2023 Active atorvastatin 40 mg oral tablet (10 sources) HMG-CoA Reductase Inhibitor Start: 04-22-2023 End: 10-23-2023 atorvastatin (LIPITOR) 40 mg tablet TAKE 1 TABLET IN THE MORNING 90 tablet 3 10/23/2023 Active 0.8 ml enoxaparin sodium 100 mg/ml prefilled syringe (9 sources) Low Molecular Weight Heparin Start: 05-05-2023 inject 0.8 mL by subcutaneous injection once enoxaparin (LOVENOX) 80 mg/0.8 mL syringe Indications: FPC (current) use of anticoagulants Inject 0.8 mL (80 mg total) under the skin every 12 (twelve) hours. 8 mL 1 05/05/2023 Active levETIRAcetam 500 mg oral tablet (8 sources) Start: 07-16-2023 take 1 tablet by mouth in the morning, then take 1 tablet by mouth at bedtime levETIRAcetam (KEPPRA) 500 mg tablet Take 1 tablet (500 mg total) by mouth in the morning and 1 tablet (500 mg total) before bedtime. 0 07/16/2023 Active meclizine hydrochloride 25 mg oral tablet (9 sources) Antiemetic Start: 06-24-2023 take 1 tablet by mouth four times daily meclizine (ANTIVERT) 25 mg tablet Take 1 tablet (25 mg total) by mouth 4 (four) times a day. 0 06/24/2023 Active melatonin 10 mg oral tablet (9 sources) melatonin 10 mg tablet Take by mouth. 0 Active nitroglycerin 0.4 mg sublingual tablet (9 sources) Nitrate Vasodilator Start: 01-26-2020 nitroglycerin (NITROSTAT) 0.4 MG SL tablet 1 under the tongue as needed for angina, may repeat q5mins for up three doses 25 tablet 3 01/26/2020 Active warfarin sodium 4 mg oral tablet (9 sources) Vitamin K Antagonist Start: 04-20-2023 warfarin (COUMADIN) 4 mg tablet Indications: History of aortic valve replacement , History of mitral valve replacement , Mitral valve disease , FPC (current) use of anticoagulants TAKE ONE-HALF (1/2) TO ONE TABLET IN THE EVENING DIRECTED BY CONCHITA HAMMOND (MEDICATION THERAPY MANAGEMENT) 90 tablet 3 04/20/2023 Active Problems Active Problems Problem Classification Problem Date Documented Date Episodic/Chronic Chronic obstructive pulmonary disease and bronchiectasis (10 sources) Chronic obstructive pulmonary disease, unspecified; Translations: [Moderate chronic obstructive pulmonary disease] Onset: 03-15-2020 07-22-2023 Chronic Complication of device; implant or graft (9 sources) Arteriosclerosis of arterial coronary artery bypass graft; Translations: [Atherosclerosis of coronary artery bypass graft(s) without angina pectoris] Onset: 08-16-2012 06-21-2019 Chronic Congestive heart failure; nonhypertensive (1 source) Unspecified diastolic (congestive) heart failure; Translations: [UNSPECIFIED DIASTOLIC HEART FAILURE] Onset: 05-17-2021 Chronic Coronary atherosclerosis and other heart disease (14 sources) Atherosclerotic heart disease of [place] coronary artery without angina pectoris; Translations: [Coronary arteriosclerosis] Onset: 10-15-2020 Chronic Diabetes mellitus without complication (1 source) Other abnormal glucose; Translations: [OTHER ABNORMAL GLUCOSE] Onset: 05-17-2021 Episodic Disorders of lipid metabolism (10 sources) Hyperlipidemia, unspecified; Translations: [Hyperlipidemia] Onset: 06-30-2016 06-21-2019 Chronic Epilepsy; convulsions (1 source) Unspecified convulsions; Translations: [Unspecified convulsions] Onset: 12-10-2023 Episodic Essential hypertension (9 sources) Hypertensive disorder; Translations: [Essential (primary) hypertension] Onset: 12-15-2022 07-22-2023 Chronic Heart valve disorders (20 sources) Mitral valve disorder; Translations: [Rheumatic mitral valve disease, unspecified] Onset: 12-19-2011 08-06-2023 Chronic Hypertension with complications and secondary hypertension (1 source) Hypertensive heart disease with heart failure; Translations: [HTN HEART DISEASE W/HEART FAIL] Onset: 05-17-2021 Chronic Malaise and fatigue (1 source) Other fatigue; Translations: [OTHER FATIGUE] Onset: 05-17-2021 Episodic Other aftercare (15 sources) Long-term current use of anticoagulant; Translations: [FPC (current) use of anticoagulants] Onset: 11-19-2016 08-06-2023 Episodic Other and unspecified benign neoplasm (1 source) Benign neoplasm of meninges, unspecified; Translations: [Benign neoplasm of meninges, unspecified] Onset: 12-10-2023 Chronic Residual codes; unclassified (1 source) Other amnesia; Translations: [OTHER AMNESIA] Onset: 05-17-2021 Episodic Residual codes; unclassified (1 source) Pain, unspecified; Translations: [Pain, unspecified] Onset: 12-06-2023 Episodic Spondylosis; intervertebral disc disorders; other back problems (4 sources) Spondylosis without myelopathy or radiculopathy, lumbar region; Translations: [SPONDYLS W/O MYELO-/RADICULOP LUMB] Onset: 05-13-2021 Chronic Spondylosis; intervertebral disc disorders; other back problems (2 sources) Radiculopathy, cervical region; Translations: [Radiculopathy, lumbar region] Onset: 05-17-2021 Episodic Substance-related disorders (4 sources) Nicotine dependence, cigarettes, with other nicotine-induced disorders; Translations: [NICOTINE DEPEND CIG W/OTH INDUC D/O] Onset: 12-05-2020 Chronic Unclassified (3 sources) LOW BACK PAIN, UNSPECIFIED; Translations: [LOW BACK PAIN, UNSPECIFIED] Onset: 05-29-2021 Unclassified (1 source) New Patient Onset: 01-21-2024 Unclassified (1 source) Consult Onset: 12-10-2023 Past or Other Problems Problem Classification Problem Date Documented Da te Episodic/Chronic Cardiac dysrhythmias (9 sources) Tachycardia; Translations: [Tachycardia, unspecified] Onset: 06-19-2016 05-13-2017 Episodic Coronary atherosclerosis and other heart disease (1 source) Presence of aortocoronary bypass graft; Translations: [PRESENCE AORTOCORONARY BYPASS GRAFT] Onset: 12-12-2020 Episodic Other aftercare (1 source) salvage determiner (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) use of anticoagulants; Translations: [salvage determiner (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) use of anticoagulants] Onset: 06-21-2019 Episodic Other lower respiratory disease (9 sources) Dyspnea; Translations: [Shortness of breath] Onset: 06-13-2019 03-15-2020 Episodic Other lower respiratory disease (9 sources) Abnormal findings on diagnostic imaging of lung; Translations: [Other nonspecific abnormal finding of lung field] Onset: 03-15-2020 03-15-2020 Episodic Other lower respiratory disease (9 sources) Chronic cough; Translations: [Chronic cough] Onset: 01-08-2023 01-08-2023 Episodic Other screening for suspected conditions (not mental disorders or infectious disease) (10 sources) Encounter for screening for malignant neoplasm of prostate; Translations: [Cardiovascular stress test abnormal] Onset: 10-19-2020 10-26-2020 Episodic Residual codes; unclassified (9 sources) Harmful pattern of use of nicotine; Translations: [Tobacco use] Onset: 01-26-2020 07-22-2023 Episodic Unclassified (1 source) LOW BACK PAIN, UNSPECIFIED; Translations: [LOW BACK PAIN, UNSPECIFIED] Onset: 05-21-2021 Results Test Name Value Interpretation Reference Range Facility PROTIME AND INRon 11-13-2023 INR Coag (PPP) [Relative time] 9.4 {INR} Critically high 0.8-1.1 [facility] Comment on above: Performed By: #### P INR #### [facility] ([id number]) [address], [place] [address] PT Coag (PPP) [Time] 100.9 s High 9.8-13.2 [facility] Comment on above: Result Comment: NEW REFERENCE RANGE Performed By: #### P INR #### [facility] ([id number]) [address], [place] [address] Protime/INRon 11-13-2023 INR Coag (PPP) [Relative time] 9.4 {INR} Critically high [facility] Interpretation and review of laboratory results Abnormal [facility] PT Coag (PPP) [Time] 100.9 s High [facility] Comment on above: NEW REFERENCE RANGE [facility] Protime & INRon 10-23-2023 INR Coag (PPP) [Relative time] 3.6 {INR} Abnormal 0.9 - 1.1 [facility] Interpretation and review of laboratory results Abnormal [facility] Protime & INRon 10-06-2023 INR Coag (PPP) [Relative time] 5.0 {INR} Abnormal 0.9 - 1.1 [facility] Interpretation and review of laboratory results Abnormal [facility] Protime & INRon 09-01-2023 INR Coag (PPP) [Relative time] 4.4 {INR} Abnormal 0.9 - 1.1 [facility] Interpretation and review of laboratory results Abnormal [facility] Protime & INRon 08-18-2023 INR Coag (PPP) [Relative time] 3.3 {INR} Abnormal 0.9 - 1.1 [facility] Interpretation and review of laboratory results Abnormal [facility] POCT Protime / INRon 08-06- 023 INR Coag (PPP) [Relative time] 5.2 {INR} Abnormal 0.8 - 1.2 [facility] Interpretation and review of laboratory results Abnormal [facility] BLOOD CULTUREon 07-22-2023 Bacteria identified Aer cx Nom (Bld) CULTURE RESULTS NO GROWTH 5 DAYS Normal [facility] Bacteria identified Aer cx Nom (Bld) CULTURE RESULTS NO GROWTH 5 DAYS Normal [facility] XR CSPINE OBL FLEX_EXTon XR CSPINE OBL FLEX_EXT EXAMINATION: XR CSPINE OBL FLEX_EXT HISTORY: Cervical radiculopathy ; numbness and tingling in left arm COMPARISON: No relevant comparison available. FINDINGS: BONES: Anterior mechanical fusion of C5-C6 via plate and screws; no evidence of hardware fracture or loosening. 3 mm retrolisthesis of C4 on 5 which decreases to 2 mm during flexion. Normal height of vertebral bodies. Multilevel mild degenerative facet arthropathy and uncovertebral joint spurring resulting in bone encroachment on the neural foramen. DISC SPACES: Moderate narrowing C3-C4, C4-C5, C5-C6. Mild narrowing C2-C3, C6-C7. PARASPINOUS: Negative. No paraspinous abnormality is seen. OTHER: Negative. IMPRESSION: 1. Prior anterior fusion of C5-C6 without evidence of hardware failure. 2. Multilevel moderate degenerative disc disease, mild degenerative facet arthropathy, and uncovertebral joint spurring resulting in narrowing of the neural foramen. Electronically authenticated by: ELIZABETH GARCIA Date: 2021-07-03 07:25 Normal [facility] CREATININEon 07-02-2021 Creatinine [Mass/Vol] 1.20 mg/dL Normal 0.66-1.25 [facility] Comment on above: Performed By: #### C TATYANA ####[facility] [id number] [place] [address]Dr. Lianne Bedoya EGFR-AF PALAUAN >60 Normal >=[address] [facility] Comment on above: Performed By: #### C TATYANA ####[facility] [id number] [place] [id number]. Lianne Beodya EGFR-NON AF PALAUAN =60 Normal >=60 [facility] Comment on above: Performed By: #### C TATYANA ####[facility] [id number] [place] [address]Dr. Lianne Bedoya MRI CSPINE WO W CONon 2020 MRI CSPINE WO W CON EXAM: MRI CSPINE WO W CON HISTORY: Cervical radiculopathy numbness tingling left arm COMPARISON: No prior cervical MRI available for review. TECHNIQUE: Multiplanar multisequence MRI was obtained through the cervical spine without and following the administration of 16 mL Dotarem intravenous contrast. FINDINGS: Osseous: The vertebral body heights are maintained. No fracture. No bone marrow edema. Anterior fusion of the cervical spine at C5-C6. Postsurgical changes of previous median sternotomy. Cervical spinal cord: No abnormal signal is demonstrated within the substance of the cervical spinal cord. No abnormal enhancement. Soft tissues/ligaments: The ligaments appear intact. The prevertebral soft tissues and posterior paraspinal musculature are normal in signal intensity. Disc levels: C2-C3: No disc protrusion, spinal canal stenosis, or neural foraminal stenosis. C3-C4: Small broad-based posterior disc bulge/osteophyte complex. Mild narrowing of the spinal canal. Mild right foraminal stenosis. C4-C5: Broad-based posterior disc bulge/osteophyte complex. Posterior ligamentous thickening. Moderate spinal canal stenosis. Mild right foraminal stenosis. C5-C6: Postsurgical changes at this level. No spinal canal stenosis. Neural foramina are patent. C6-C7: Broad-based posterior disc bulge/osteophyte complex. Mild spinal canal stenosis. Moderate left and mild right foraminal stenosis C7-T1: No disc protrusion, spinal canal stenosis, or neural foraminal stenosis. IMPRESSION: 1. Degenerative changes of the cervical spine most notably at C4-C5 where there is moderate spinal canal stenosis and mild right foraminal stenosis. 2. Mild spinal canal stenosis at C6-C7 with moderate left and mild right foraminal stenosis. Electronically authenticated by: ALEK SOLORZANO Date: 2021-07-02 16:15 Normal [facility] MRI [facility] WO CONon 05-21-20 21 MRI [facility] CON EXAM: MRI [facility] WO CON HISTORY: Pain in lumbar spine. Chronic left hip pain and left leg weakness. Prior postsurgical change at L4-L5 in the . COMPARISON: Lumbar spine x-rays 05/13/2021. TECHNIQUE: Multiplanar multisequence of the lumbar spine was performed without contrast. This included sagittal T2, sagittal T1, sagittal STIR, axial T2 and axial T1 imaging. FINDINGS: No compression fracture is seen. No malalignment is identified. Moderate to severe disc space narrowing and endplate spur at L4-L5. No suspicious marrow infiltrating mass identified. Prior left hemilaminotomy at L4-L5 and L5-S1. The imaged lower thoracic spinal cord and conus appear unremarkable. No nodular thickening or clumping of the cauda equina nerve roots. Intra-abdominal soft tissues appear unremarkable. No paraspinal or presacral mass is identified. L1-L2: Small left foraminal protrusion causes mild left neural foraminal stenosis. No significant central canal or right neural foraminal stenosis. L2-L3: Minimal disc bulge and spondylitic ridging is seen without significant central canal stenosis. Mild bilateral neural foraminal stenosis. L3-L4: Diffuse disc bulge is seen with small central/right paracentral protrusion measuring 3 mm in AP dimension. This narrows the AP diameter of the spinal canal to 7 mm compatible with moderate central canal stenosis. Abutment of the traversing right L4 nerve root. There is mild right and mild to moderate left neural foraminal stenosis. L4-L5: Prior left hemilaminotomy. Minor spondylitic ridging is seen without significant central canal stenosis. Mild bilateral neural foraminal stenosis. L5-S1: Prior left hemilaminotomy. Minimal disc bulge is seen without significant central canal or neural foraminal stenosis. IMPRESSION: 1. L3-L4: Disc bulge and small central/right paracentral protrusion causes moderate central canal stenosis with abutment of the traversing right L4 nerve root. There is mild right and [id number] left neural foraminal stenosis. 2. Left hemilaminotomy at L4-L5 and L5-S1. No disc herniation at the surgical levels. 3. No compression fracture. No MRI signs of arachnoiditis. Electronically authenticated by: ANGELICA KWONG Date: 2021-05-21 14:00 Normal [facility] INSULINon 05-15-2021 Insulin 21.2 uIU/mL Normal 2.6-24.9 [facility] Comment on above: Performed By: #### I NSULIN #### [facility] [address] [place] [address] Dr. Lianne Bedoya BNPon 05-13-2021 Natriuretic peptide B (Bld) [Mass/Vol] 360.0 pg/mL Normal <=900.0 [facility] Comment on above: Performed By: #### C MP, BNP, T7, LIPID, TSH ####[facility] [id number] [place] [id number]. Lianne Bedoya CBC AUTO DIFFon 05-13-2021 BASO # 0.1 103/ul Normal 0.0-0.1 [facility] Comment on above: Performed By: #### C BC ####[facility] [id number] [place] [phone]. Lianne Aureliano Basophils/100 WBC (Bld) 0.5 % Normal 0.2-2.0 [facility] Comment on above: Performed By: #### C BC ####[facility] [address] [place] [address]Dr. Lianne Aureliano EO # 0.1 103/ul Normal 0.0-0.7 [facility] Comment on above: Performed By: #### C BC ####[facility] [address] [place] [address]Dr. Patricianicholas Bedoya Eosinophils/100 WBC (Bld) 1.2 % Normal 0.9-7.0 [facility] Comment on above: Performed By: #### C BC ####[facility] [address] [place], [place] [address]Dr. Lianne Bedoay Erythrocyte distribution width (RBC) [Ratio] 13.5 % Normal 11.0-15.0 [facility] Comment on above: Performed By: #### C BC ####[facility] [address] [place], [place] [address]Dr. Lianne Bedoya Hematocrit (Bld) [Volume fraction] 51.2 % Normal 42.0-54.0 [facility] Comment on above: Performed By: #### C BC ####[facility] [address] [place], [place] [id number]. Lianne Bedoya Hemoglobin (Bld) [Mass/Vol] 17.7 g/dL Normal 14.0-18.0 [facility] Comment on above: Performed By: #### C BC ####[facility] [address] [place] [id number]. Lianne Bedoya IG # 0.10 10e3/ul Critically high 0.00-0.03 [facility] Comment on above: Performed By: #### C BC ####[facility] [address] [place] [id number]. Patricianicholas Bedoya IG % 1.0 % Critically high 0.0-0.5 [facility] Comment on above: Performed By: #### C BC ####[facility] [id number] [place] [phone]. Lianne Aureliano LYMPH # 1.6 103/ul Normal 1.2-3.8 [facility] Comment on above: Performed By: #### C BC ####[facility] [address] [place] [phone] Patricianicholas Bedoya Lymphocytes/100 WBC (Bld) 16.1 % Critically low 20.5-60.0 [facility] Comment on above: Performed By: #### C BC ####[facility] [address] [place] [address]DrKaya Bedoya MANUAL DIFF REQ NO Normal [facility] Comment on above: Performed By: #### C BC ####[facility] [address] [place] [id number]. Lianne Aureliano MCH (RBC) [Entitic mass] 33.1 pg Normal 25.9-34.0 [facility] Comment on above: Performed By: #### C BC ####[facility] [address] [place] [id number] Lianne Aureliano MCHC (RBC) [Mass/Vol] 34.6 g/dL Normal 29.9-35.2 [facility] Comment on above: Performed By: #### C BC ####[facility] [address] [place] [id number] Patricianicholas Bedoya MCV (RBC) [Entitic vol] 95.7 fL Critically high 80.0-94.0 [facility] Comment on above: Performed By: #### C BC ####[facility] [address] [place] [id number] Bedoya MONO # 0.8 103/ul Normal 0.3-0.8 [facility] Comment on above: Performed By: #### C BC ####[facility] [address] [place] [id number]. Lianne Bedoya Monocytes/100 WBC (Bld) 8.0 % Normal 1.7-12.0 [facility] Comment on above: Performed By: #### C BC ####[facility] [address] [place] [id number]. Lianne Bedoya NEUT # 7.5 103/ul Critically high 1.4-6.5 [facility] Comment on above: Performed By: #### C BC ####[facility] [address] [place] [id number]. Lianne Bedoya Neutrophils/100 WBC (Bld) 73.2 % Normal 43.0-75.0 [facility] Comment on above: Performed By: #### C BC ####[facility] [address] [place] [id number]. Lianne Bedoya Platelet mean volume (Bld) [Entitic vol] 10.1 fL Normal 9.5-13.5 [facility] Comment on above: Performed By: #### C BC ####[facility] [address] [place] [phone]. Lianne Bedoya PLT 231 103/ul Normal 150-450 [facility] Comment on above: Performed By: #### C BC ####[facility] [address] [place] [id number]. Lianne Bedoya RBC 5.35 106/ul Normal 4.70-6.10 [facility] Comment on above: Performed By: #### C BC ####[facility] [address] [place] [id number]. Lianne Bedoya WBC 10.2 103/ul Normal 4.0-11.0 [facility] Comment on above: Performed By: #### C BC ####[facility] [address] [place] [id number]. Lianne Bedoya FREE THYROXINE INDEX T7on FTI 3.38 Normal [facility] Comment on above: Performed By: #### C MP, BNP, T7, LIPID, TSH #### [facility] [address] [place] [address] [address] Lianne Bedoya T3U 38.0 % Normal 23.5-40.5 [facility] Comment on above: Performed By: #### C MP, BNP, T7, LIPID, TSH #### [facility] [address] [place] [address] [address] Lianne Bedoya T4 [Mass/Vol] 8.90 ug/dL Normal 5.53-11.00 [facility] Comment on above: Performed By: #### C MP, BNP, T7, LIPID, TSH #### [facility] [address] [address] [address] Lianne Bedoya GLYCOHEMOGLOBIN A1Con 2020 ADA RECOMMENDATION ADA THERAPEUTIC TARGET 6.0 - 7.0 ACTION SUGGESTED > 7.0 Normal [facility] Comment on above: Performed By: #### A 1C #### [facility] [address] [address] [address] Lianne Bedoya Glucose [Mass/Vol] 120 mg/dL Normal [facility] Comment on above: Performed By: #### A 1C #### [facility] [address] [address] [address] Lianne Bedoya HbA1c (Bld) [Mass fraction] 5.8 % Normal <=6.0 [facility] Comment on above: Performed By: #### A 1C #### [facility] [address] [address] [address] Lianne Bedoya LIPID PROFILEon 05-13-2021 CHOL-HDL RATIO NORM SEE BELOW Normal [facility] Comment on above: Result Comment: 3.3 - 4.4 LOW RISK 4.4 - 7.1 AVERAGE RISK 7.1 - 11.0 MODERATE RISK >11.0 HIGH RISK Performed By: #### C MP, BNP, T7, LIPID, TSH ####[facility] [id number] [address]Dr. Lianne Bedoya Cholesterol [Mass/Vol] 164 mg/dL Normal <=200 [facility] Comment on above: Performed By: #### C MP, BNP, T7, LIPID, TSH ####[facility] [id number] [id number]. Lianne Bedoya Cholesterol in HDL [Mass/Vol] 57 mg/dL Normal [facility] Comment on above: Performed By: #### C MP, BNP, T7, LIPID, TSH ####[facility] [id number] [id number]. Lianne Bedoya Cholesterol in LDL [Mass/Vol] 85.0 mg/dL Normal [facility] Comment on above: Performed By: #### C MP, BNP, T7, LIPID, TSH ####[facility] [id number] [id number]. Lianne Bedoya Cholesterol.total/Cho lesterol in HDL [Mass ratio] 2.9 {ratio} Normal [facility] Comment on above: Performed By: #### C MP, BNP, T7, LIPID, TSH ####[facility] [id number] [address]Dr. Lianne Bedoya HDL NORMAL > or = 60 mg/dl - LOW CARDIOVASCULAR RISK <40 mg/dl - HIGH CARDIOVASCULAR RISK Normal [facility] Comment on above: Performed By: #### C MP, BNP, T7, LIPID, TSH ####[facility] [id number] [address]Dr. Lianne Bedoya LDL CALC NORMAL SEE BELOW Normal [facility] Comment on above: Result Comment: <100 mg/dl OPTIMAL 100 - 129 mg/dl NEAR OR ABOVE OPTIMAL 130 - 159 mg/dl BORDERLINE HIGH 160 - 189 mg/dl HIGH >190 mg/dl VERY HIGH Performed By: #### C MP, BNP, T7, LIPID, TSH ####[facility] [id number] [id number]. Lianne Bedoya Triglyceride [Mass/Vol] 110 mg/dL Normal <=150 [facility] Comment on above: Performed By: #### C MP, BNP, T7, LIPID, TSH ####[facility] [id number] [id number]. Lianne Bedoya VLDL CALC 22.0 mg/dL Normal [facility] Comment on above: Performed By: #### C MP, BNP, T7, LIPID, TSH ####[facility] [id number] [address]Dr. Lianne Bedoya PROF 14(COMP METB)on 021 Albumin [Mass/Vol] 3.8 g/dL Normal 3.5-5.0 [facility] Comment on above: Performed By: #### C MP, BNP, T7, LIPID, TSH #### [facility] [address] [address] [address] Lianne Bedoya Albumin/Globulin [Mass ratio] 1.1 {ratio} Normal [facility] Comment on above: Performed By: #### C MP, BNP, T7, LIPID, TSH #### [facility] [address] [address] [address] Lianne Bedoya ALP [Catalytic activity/Vol] 83 U/L Normal 38-126 [facility] Comment on above: Performed By: #### C MP, BNP, T7, LIPID, TSH #### [facility] [address] [address] [address] Lianne Bedoya ALT [Catalytic activity/Vol] 31 U/L Normal 21-72 [facility] Comment on above: Performed By: #### C MP, BNP, T7, LIPID, TSH #### [facility] [address] [address] [address] Lianne Bedoya Anion gap [Moles/Vol] 10.8 mmol/L Normal [facility] Comment on above: Performed By: #### C MP, BNP, T7, LIPID, TSH #### [facility] [address] [address] [address] Lianne Bedoya AST [Catalytic activity/Vol] 18 U/L Normal 17-59 [facility] Comment on above: Performed By: #### C MP, BNP, T7, LIPID, TSH #### [facility] [address] [address] [address] Lianne Bedoya Bilirubin [Mass/Vol] 0.6 mg/dL Normal 0.2-1.3 [facility] Comment on above: Performed By: #### C MP, BNP, T7, LIPID, TSH #### [facility] [address] [place] [address] Dr. Lianne Bedoya Calcium [Mass/Vol] 9.2 mg/dL Normal 8.4-10.2 [facility] Comment on above: Performed By: #### C MP, BNP, T7, LIPID, TSH #### [facility] [address] [place] [address] Dr. Lianne Bedoya Chloride [Moles/Vol] 105 mmol/L Normal 98-107 [facility] Comment on above: Performed By: #### C MP, BNP, T7, LIPID, TSH #### [facility] [address] [place] [address] Dr. Lianne Bedoya CO2 [Moles/Vol] 28.0 mmol/L Normal 22.0-30.0 [facility] Comment on above: Performed By: #### C MP, BNP, T7, LIPID, TSH #### [facility] [address] [place] [address] Dr. Lianne Bedoya Creatinine [Mass/Vol] 1.17 mg/dL Normal 0.66-1.25 [facility] Comment on above: Performed By: #### C MP, BNP, T7, LIPID, TSH #### [facility] [address] [place] [address] Dr. Lianne Bedoya EGFR-AF PALAUAN >60 Normal >=60 [facility] Comment on above: Performed By: #### C MP, BNP, T7, LIPID, TSH #### [facility] [address] [place] [address] Dr. Lianne Bedoya EGFR-NON AF PALAUAN >60 Normal >=60 [facility] Comment on above: Performed By: #### C MP, BNP, T7, LIPID, TSH #### [facility] [address] [place] [address] Dr. Lianne Bedoya Globulin (S) [Mass/Vol] 3.5 g/dL Normal [facility] Comment on above: Performed By: #### C MP, BNP, T7, LIPID, TSH #### [facility] [address] [place] [address] Dr. Lianne Bedoya Glucose [Mass/Vol] 126 mg/dL Critically high 74-106 T [facility] Comment on above: Performed By: #### C MP, BNP, T7, LIPID, TSH #### [facility] [address] [address] [address] Lianne Bedoya Potassium [Moles/Vol] 3.8 mmol/L Normal 3.4-5.0 [facility] Comment on above: Performed By: #### C MP, BNP, T7, LIPID, TSH #### [facility] [address] [address] [address] Lianne Bedoya Protein [Mass/Vol] 7.3 g/dL Normal 6.1-8.2 [facility] [place] Comment on above: Performed By: #### C MP, BNP, T7, LIPID, TSH #### [facility] [address] [address] [address] Lianne Bedoya Sodium [Moles/Vol] 140 mmol/L Normal 137-145 [facility] [place] Comment on above: Performed By: #### C MP, BNP, T7, LIPID, TSH #### [facility] [address] [address] [address] Lianne Bedoya Urea nitrogen [Mass/Vol] 27.0 mg/dL Critically high 9.0-20.0 [facility] Comment on above: Performed By: #### C MP, BNP, T7, LIPID, TSH #### [facility] [address] [address] [address] Lianne Bedoya Urea nitrogen/Creatinine [Mass ratio] 23.1 mg/mg Normal [facility] Comment on above: Performed By: #### C MP, BNP, T7, LIPID, TSH #### [facility] [address] [address] [address] Lianne Bedoya TSHon 05-13-2021 TSH 2.292 uIU/mL Normal 0.470-4.680 [facility] Comment on above: Performed By: #### C MP, BNP, T7, LIPID, TSH ####[facility] [id number] [address]Dr. 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 TECHNIQUE: AP view of the pelvis was obtained along with AP and lateral views of bilateral hips. 5 views of lumbar spine were obtained. FINDINGS: Lumbar spine: There is severe osteopenia. Diffuse loss of disc height is noted with endplate spurring. Schmorl's node is present. Severe loss of disc height is seen at L3-L4 and L4-L5. There is grade 1 anterolisthesis at L2 over L3. Mild facet joint osteoarthritis is noted. Pelvis and bilateral hips: There is mild marginal spurring with joint space narrowing at bilateral hip joints. There is mild right sacroiliac joint osteoarthritis. IMPRESSION: Lumbar spine: 1. Diffuse disc degenerative changes most prominent at L3-L4 and L4-L5. 2. Grade 1 anterolisthesis at L2 over L3. Pelvis and bilateral hips: 1. Moderate bilateral hip joint osteoarthritis. 2. Mild right sacroiliac joint osteoarthritis. Electronically authenticated by: DOROTHY JAMA Date: 2021-05-13 10:08 Normal [facility] CREATININEon 12-05-2020 Creatinine [Mass/Vol] 1.21 mg/dL Normal 0.66-1.25 [facility] Comment on above: Performed By: #### C TATYANA ####[facility] [address] [place], [place] [address]Rxxrfb Ammy EGFR-AF PALAUAN >60 Normal >=[address] [facility] Comment on above: Performed By: #### C TATYANA ####[facility] [address] [place], [place] [address]Gpawso Ammy EGFR-NON AF PALAUAN >60 Normal >=60 [facility] Comment on above: Performed By: #### C TATYANA ####[facility] [address] [place], [place] [address]Xrojk[address] LUNG CANCER SCREENINGon 0 12-05-2020 CT LUNG CANCER SCREENING EXAMINATION: CT LUNG CANCER SCREENING HISTORY: Nicotine dependence COMPARISON: No relevant comparison available. TECHNIQUE: Multi-planar CT images were created with IV contrast. Axial, Coronal, and Sagittal images. Dose reduction techniques were achieved by using automated exposure control and/or adjustment of mA and/or kV according to patient size and/or use of iterative reconstruction technique. FINDINGS: VASCULATURE: No pulmonary embolism or abnormal opacity. LUNGS: Mild bronchiectasis and emphysematous changes. No acute infiltrates. PLEURA: No mass, effusion, or pneumothorax. OLIVIA: No mass or adenopathy. MEDIASTINUM: No mass or adenopathy. CARDIAC: Prior valve replacements. No enlargement, pericardial effusion, or pericardial thickening. AORTA: No aneurysm or dissection. CHEST WALL: No mass or axillary adenopathy. BONES: No bone lesion or fracture. Mechanical stabilization of the lower cervical spine. LIMITED ABDOMEN: No suspicious findings. Limited images of the upper abdomen. OTHER: Negative. EXAMINATION: CT LUNG CANCER SCREENING IMPRESSION: 1. LUNG SCREENING: Lung-RADS Category 1 Negative. No nodules and definitely benign nodules. Continue annual screening with LDCT in 12 months. 2. Mild emphysematous changes and mild bronchiectasis. Electronically authenticated by: ELIZABETH GARCIA Date: 2020-12-05 11:39 Normal [facility] MRI BRAIN WO W CONon 021 MRI BRAIN WO W CON EXAMINATION: MRI BRAIN WO W CON HISTORY: Fatigue , short-term memory loss COMPARISON: No relevant comparison available. TECHNIQUE: A variety of imaging planes and parameters were utilized for visualization of suspected pathology. Images were performed without and with contrast. FINDINGS: CEREBRUM: No edema, hemorrhage, mass, acute infarction, or inappropriate atrophy. CEREBELLUM: No edema, hemorrhage, mass, acute infarction, or inappropriate atrophy. 2 focal areas of signal dropout on the T2 star sequence with no corresponding findings on the rest of the sequences to suggest an abnormality. BRAINSTEM: No edema, hemorrhage, mass, acute infarction, or inappropriate atrophy. CSF SPACES: Ventricles, cisterns, and sulci are appropriate for age. No hydrocephalus, subarachnoid hemorrhage, or mass. SKULL: No mass or other significant visible lesion. SINUSES: Trace amount mucosal thickening within the left ethmoid air cells; possible very mild sinusitis. Remainder of the paranasal sinuses are clear. ORBITS: Limited views are unremarkable. OTHER: No abnormal meningeal or parenchymal enhancement. IMPRESSION: 1. No abnormal or suspicious findings to account for the patient's symptoms. Electronically authenticated by: ELIZABETH GARCIA Date: 2020-12-05 12:52 Normal [facility] CARDIAC STRESS TESTon 2020 CARDIAC STRESS TEST The [place], [place] NAME: STEVE RASCON DATE OF : MEDICAL REC#: [id number] FOREST RANGER TECHNICIAN: 140CARLOS WILLETTADMIT DATE: 10/15/2020 08:34:00 GENETIC SCIENTIST DATE: 10/15/2020 20:31 DICTATING PHYSICIAN: NIKOLAI MARQUEZ DICTATION DATE: 10/15/2020 12:00 CARDIAC STRESS TEST Requesting Physician: Funmilayo Dorsey MD Procedure Date: 10/15/2020 INDICATION: Shortness of breath, history of valve replacement. METHOD: After risks and benefits were explained, written informed consent was obtained. The patient was brought to the stress lab in a resting and fasting state. He was connected to the appropriate hemodynamic and electrocardiographic monitoring. He underwent a Ashish protocol for exercise treadmill stress testing. He was monitored for the standard duration and discharged in a stable state. FINDINGS: HEMODYNAMICS: Resting heart rate was 87 beats per minute with a resting blood pressure of 144/86, peak heart rate was 134 beats per minute which was 88% of maximum predicted heart rate with a peak blood pressure of 218/92. The patient exercised for 6 minutes and 46 seconds, reaching stage 2 of the Ashish protocol with a maximum MET level of 7. ELECTROCARDIOGRAPHY; Rest EKG: Sinus rhythm, first-degree A-V block, poor R wave progression cannot rule out septal infarct age indeterminate. Abnormal resting EKG. During exercise: Frequent premature ventricular contractions noted. Ventricular couplets seen. Frequent ventricular couplets are seen in early recovery. There is 1 mm of horizontal and downsloping ST depression seen in leads II, III, and aVF. These changes return to normal during recovery. During recovery: ST changes described above slowly return to normal. Initially ventricular couplets were seen. The final EKG shows no significant change from baseline. IMPRESSIONS: 1. Ischemic EKG changes seen in leads II, III, and aVF. 2. Frequent ventricular ectopy including premature ventricular contractions and ventricular couplets are seen. 3. The Del Castillo score (0) estimates an annual cardiovascular mortality of 1% and a 5-year survival of 92%. Using the Del Castillo score, there is an intermediate probability of angiographic coronary disease. Electronically Authenticated and Edited by: Nikolai Marquez MD on 10/16/2020 12:54 PM EST [facility] Signed and Approved by: DR NIKOLAI MARQUEZ 10/16/2020 12:54:00 [facility] Encounters Encounter Date Encounter Type Care Provider Facility Start: 03-30-2024 End: 03-30-2024 ambulatory [facility] Start: 03-02-2024 End: 03-02-2024 ambulatory [facility] Start: 02-03-2024 End: 02-03-2024 ambulatory [facility] Start: 01-21-2024 End: 01-21-2024 ambulatory JESSICA Ricketts [facility] Start: 01-06-2024 End: 01-06-2024 ambulatory [facility] Start: 12-24-2023 End: 12-24-2023 ambulatory [facility] Start: 12-10-2023 End: 12-10-2023 ambulatory CORINA OLIVER [facility] Start: 12-06-2023 ambulatory FUNMILAYO Betsy Laila [facility] Start: 12-03-2023 End: 12-03-2023 ambulatory [facility] Start: 11-30-2023 End: 11-30-2023 ambulatory LEVAR ALLEN Not Available Start: 11-25-2023 End: 11-25-2023 ambulatory [facility] Start: 11-17-2023 End: 11-17-2023 ambulatory [facility] Start: 11-13-2023 End: 11-13-2023 ambulatory [facility] Start: 11-13-2023 End: 11-13-2023 Follow-up encounter [facility] 1 [facility] Comment on above: salvage determiner (current) use of anticoagulants [Z79.01] (Primary Dx); Mitral valve disease; History of mitral valve replacement; History of aortic valve replacement Start: 10-26-2023 Follow-up encounter Wendikaylan Perez [facility] Work Phone: [facility] Medication Therapy Management Comment on above: salvage determiner (current) use of anticoagulants [Z79.01] (Primary Dx); Mitral valve disease; History of mitral valve replacement; History of aortic valve replacement Start: 10-23-2023 Documentation procedure Nick Campbell [facility] Work Phone: [facility]ication Therapy Management Start: 10-19-2023 Refill Angelica tyson APRN-[facility] Work Phone: [facility] Comment on above: Med Refill Start: 10-07-2023 Follow-up encounter [facility] Work Phone: [facility]ication Therapy Management Comment on above: FPC (current) use of anticoagulants [Z79.01] (Primary Dx); Mitral valve disease; History of mitral valve replacement; History of aortic valve replacement Start: 09-01-2023 Follow-up encounter [facility] Work Phone: [facility]ication Therapy Management Comment on above: salvage determiner (current) use of anticoagulants [Z79.01] (Primary Dx); Mitral valve disease; History of mitral valve replacement; History of aortic valve replacement Start: 08-18-2023 Follow-up encounter Dwight Jacobson [facility] Work Phone: [facility] Medication Therapy Management Comment on above: salvage determiner (current) use of anticoagulants [Z79.01] (Primary Dx); Mitral valve disease; History of mitral valve replacement; History of aortic valve replacement Start: 08-06-2023 End: 08-06-2023 Follow-up encounter [facility] 1 [facility] Medication Therapy Management Comment on above: FPC (current) use of anticoagulants [Z79.01] (Primary Dx); Mitral valve disease; History of mitral valve replacement; History of aortic valve replacement Start: 08-06-2023 End: 08-10-2023 ambulatory FUNMILAYO DORSEY [facility] Start: 07-22-2023 Telephone encounter [facility] Start: 07-11-2021 Encounter for other specified special examinations DR DOCTOR MEEHAN [facility] Start: 07-02-2021 End: 07-03-[address] DOCTOR MEEHAN Facility:[facility] Start: 07-02-2021 End: 07-03-2021 Encounter for other specified special examinations DR DOCTOR MEEHAN Facility:[facility] Start: 05-21-2021 End: 05-22-[address] FUNMILAYO DORSEY Facility:[facility] Start: 05-13-2021 End: 05-14-[address] FUNMILAYO DORSEY Facility:[facility] Start: 12-05-2020 End: 12-06-[address] FUNMILAYO DORSEY Facility:[facility] Start: 10-30-2020 End: 10-31-[address] FUNMILAYO DORSEY Facility:[facility] Start: 10-15-2020 End: 10-16-[address] FUNMILAYO DORSEY Facility:[facility] Start: 10-08-2020 End: 10-09-[address] ERROL MORALES Facility:[facility] Start: 03-19-2017 End: 03-20-2017 Ambulatory DEFAULT PHYSICIAN Facility:[facility] Procedures Date Procedure Procedure Detail Performing Clinician Start: 11-13-2023 Prothrombin time [facility] Work Phone: Start: 10-23-2023 Prothrombin time [employer] Work Phone: Start: 10-06-2023 Prothrombin time Not In System Ref Prov Start: 09-01-2023 Prothrombin time Not In System Ref Prov Start: 08-18-2023 Prothrombin time [employer] Work Phone: Start: 08-06-2023 Prothrombin time [employer] [facility] Work Phone: Start: 05-13-[address] SYLVIA DORSEY Comment on above: Performed By: #### P [facility] #### [facility] [address] [place] [address] Dr. Lianne Bedoya Plan of Treatment Date Care Activity Detail Author Start: 07-24-2024 Adult BMI Screening Adult BMI Screening [facility] Start: 07-24-2024 Tobacco Screening Tobacco Screening [facility] Start: 04-10-2024 Influenza vaccination Influenza Vaccine [facility] Start: 11-17-2023 End: 11-17-2023 Follow-up encounter 11/17/2023 10:30 AM EDT Follow Up Anticoagulation [facility] Medication Therapy Management [address] [place] [address] [facility] Start: 04-10-2023 COVID-19 Vaccine ( season) COVID-19 Vaccine () [facility] Start: 04-10-2023 Influenza vaccination Influenza Vaccine [facility] Start: 2018 Fall Risk Screening Fall Risk Screening [facility] Start: 2003 Administration of varicella zoster vaccine Zoster (Shingles) Vaccine (1 of 2) [facility] Start: 01-16-1972 DTaP,Tdap and Td Vaccines (1 - Tdap) DTaP,Tdap and Td Vaccines (1 - Tdap) [facility] Start: 1965 Depression Screening Depression Screening [facility] Start: 1953 Medicare Annual Wellness Visit Medicare Annual Wellness Visit [facility] Start: 1953 Tobacco Counseling Tobacco Counseling [facility] Payers Date Payer Category Payer Unknown 2020 Unknown [id number] 2018 Medicare MEDICARE MEDICAR E PART A & B [id number] 2018-Present [phone] [address] [place] [address] [id number] 1959 Medicare [id number] 1959 Self-pay 1959 Unknown [id number] 1959 Unknown [id number] 1953 Unknown [id number] 2.16.840.1.074457.3.579.2.593 1953 Unknown [id number] 2.16.840.1.092422.3.579.2.593 1953 Unknown [id number] 2.16.840.1.962667.3.579.2.593 1953 Unknown [id number] 2.16.840.1.803997.3.579.2.593 1953 Unknown [id number] 2.16.840.1.850959.3.579.2.593 1953 Unknown [id number] 2.16.840.1.496477.3.579.2.1286 1953 Unknown [id number] 2.16.840.1.244542.3.579.2.1259 1953 Unknown [id number] 2.16.840.1.997530.3.579.2.1286 1953 Unknown [id number] 2.16.840.1.141834.3.579.2.1286 1953 Unknown [id number] 2.16.840.1.042839.3.579.2.1286 1953 Unknown [id number] 2.16.840.1.067210.3.579.2.1286 1953 Unknown [id number] 2.16.840.1.696327.3.579.2.1286 1953 Unknown [id number] 2.16.840.1.986712.3.579.2.1286 1953 Unknown [id number] 2.16.840.1.564004.3.579.2.1286 1953 Unknown [id number] 2.16.840.1.408270.3.579.2.1286 1953 Unknown [id number] 2.16.840.1.622417.3.579.2.1286 1953 Unknown [id number] 2.16.840.1.003361.3.579.2.6 1953 Unknown [id number] 2.16.840.1.830135.3.579.2.1285 1953 Unknown [id number] 2.16.840.1.474927.3.579.2.1286 1953 Unknown [id number] 2.16.840.1.764664.3.579.2.6 1953 Unknown [id number] 2.16.840.1.316619.3.579.2.1285 1953 Unknown [id number] 2.16.840.1.396674.3.579.2.1286 Unknown [id number] 2.16.840.1.797360.3.579.2.593 Unknown [id number] 2.16.840.1.157875.3.579.2.593 Social History Date Type Detail Facility [facility]: [facility] Start: 08-10-1978 History of tobacco use Cigarette Smo ker [facility] Start: 08-21-2020 End: 05-08-2023 Cigarettes smoked current (pack per day) - Reported 1.5 [facility] Start: 05-08-2023 Tobacco use and exposure Smoke less tobacco non-user [facility] Start: 07-22-2023 End: 07-24-2023 Alcohol intake Current drinker of alcohol (finding) [facility] Start: 08-21-2020 End: 07-24-2023 Tobacco use panel [facility] Housing Instability Unknown [facility] Start: 12-15-2022 Tobacco Comment daily [facility] Start: 10-26-2020 Alcohol Comment few times weekly [facility] Start: 1955 Sex Assigned At Not on file P [facility] Hospital Clinical Notes 07-22-2023 to 11-13-2023 Sheyla Silverman, [facility] - 11/13/2023 1:45 PM Ronajohnkevin Usha, [facility] - 10/26/2023 8:17 AM Augusto Campbell, [facility] - 10/23/2023 11:10 AM Fina Kenney, [place] - 10/07/2023 8:14 AM EST Note Date & Type Note Facility 11-13-2023 History of Presen t illness Narrative 15 minute pcsg-mg-achc follow-up anticoagulation appointment. INR performed in office per protocol. INR PENDING (goal range: 3.0-4.0). --- OPTICAL FABRICATOR >8, sent to lab(Confirming OPTICAL FABRICATOR-9.4) Patient reports: Taking warfarin dosing as documented. Missed or extra doses of warfarin: No Changes to medications: No Changes to lifestyle (diet / alcohol / smoking / activity): YES Yesterday did not eat anything. He has been eating less overall Recent emergency department visit / hospitalization / health changes / new contraindication to current anticoagulant: No Signs/symptoms of bruising/bleeding or clotting or any intolerable adverse events: YES Increased bruising on arms Upcoming procedures: No Anticoagulant prescription needed: No Seen referring provider in the last year Duration of therapy reviewed Assessment: INR is significantly elevated. We are awaiting INR result from lab. Patient instructed to hold therapy until INR follow up on Thursday or until additional instruction provided by [facility]. Of note, patient potentially has a thrombus. Will need to be conservative if reversal is needed. Patient has already taken dose today. Pending INR, may need to instruct patient to take a dose on Thursday verse holding Plan: Patient instructed to hold warfarin . Check INR in 3 day(s). I instructed Bill to have 1 serving size of broccHelidyneight if he has some in his freezer. I told him NOT to overdue it or eat more than this as we don't want his INR to tank over the next 3 days. He showed good understanding and stated he will be very careful and watch for any abnormal bruising or bleeding Patient verbalizes understanding of anticoagulant dosing instructions and information discussed. Dosing regimen, counseling, and follow-up appointment were provided to the patient. Patient reminded to call with questions or any medication changes. Patient instructed to seek medical attention if any major bleeding/bleeding that persists or worsens. Sheyla Silverman, [facility] 11/13/23 1535 Zak Pastrana [facility] 11/13/23 1624 documented in this encounter [facility] 10-26-2023 History of Presen t illness Narrative Result received from [employer] [place], [place]. INR 3.6 on 10/23/23 (goal range: 3.0-4.0). Left voicemail for patient at [phone] with the following instructions including INR result: Assessment: INR is remaining stable in therapeutic range on current warfarin regimen. Plan: Patient instructed to continue warfarin 2 mg every Mon, Fri; 4 mg all other days. Check INR in 3 week(s). Patient instructed to return call to discuss INR result, anticoagulant dosing instructions, and follow-up INR redraw date as well as confirm current warfarin regimen and assess any recent changes in medications, lifestyle (diet / alcohol / smoking / activity), or health. Patient also instructed to report any upcoming procedures or signs/symptoms of bleeding or clotting. Wendi Kerr [facility] 10/26/23 1017 documented in this encounter [facility] 10-23-2023 History of Presen t illness Narrative Received fax from [facility] in [place] that INR was unable to be performed on 10/19 due to specimen received under filled. Called patient and left voicemail at [phone] requesting he repeat INR draw within next few days. Patient to continue 2mg Mon, Fri; 4mg all other days. Heike Campbell [facility] 10/23/23 1113 documented in this encounter [facility] 10-07-2023 History of Presen t illness Narrative Aurora from [facility] in [place] called with critical results. On 10/06/23, INR was 5.0, PT 48.3. She is faxing the results as well. Result received from [facility] ([place]). INR 5.0 (goal range: 3.0-4.0). Spoke to patient who reports patient findings: Taking warfarin dosing as documented. Missed or extra doses of warfarin: No Changes to medications: yes, patient has been on levetiriacetam. Takes ibuprofen 600 mg at night Changes to lifestyle (diet / alcohol / smoking / activity): patient states that he had some alcoholic beverages before taking the INR test. He also reports that appetite was slightly reduced over the last few days as well Recent emergency department visit / hospitalization / health changes / new contraindication to current anticoagulant: No Signs/symptoms of bruising/bleeding or clotting: No Upcoming procedures: No Anticoagulant prescription needed: No Seen referring provider in the last year Duration of therapy reviewed Assessment: INR is elevated at 5.0 today which could be d/t to alcohol intake and slight appetite reduction. Will plan to reduce x 1 then resume regimen. He may need dose reduction if INR remains elevated at the next INR draw Plan: Patient instructed to decrease to warfarin 2 mg today then continue 2 mg on Mon and Fri; 4 mg on all other days. Check INR in 2 week(s). Patient and/or caregiver verbalizes understanding of anticoagulant dosing instructions and information discussed. Dosing regimen, counseling, and follow-up INR redraw date were provided. Patient reminded to call with questions or any medication changes. Patient instructed to seek medical attention if any major bleeding/bleeding that persists or worsens. [phone] Ligia Daniel RPH 10/07/23 0859 documented in this encounter [facility] 09-01-2023 History of Presen t illness Narrative Violet Navarrete called from [facility] in [facility] with INR results. INR today 4.4 PT today 43.8 PH for Violet :[phone] ext [phone] Result received from [facility] ([place] INR 4.4 (goal range: 3.0-4.0). Spoke to patient and/or caregiver who reports patient findings: Taking warfarin dosing as documented. Missed or extra doses of warfarin: No Changes to medications: No Changes to lifestyle (diet / alcohol / smoking / activity): No Recent emergency department visit / hospitalization / health changes / new contraindication to current anticoagulant: No Signs/symptoms of bruising/bleeding or clotting: No Upcoming procedures: No Anticoagulant prescription needed: No Seen referring provider in the last year Duration of therapy reviewed Assessment: Supratherapeutic INR without an identifiable cause. Has been labile recently. Note, INR goal is 3-4 so want to avoid dropping low. Plan: Patient instructed to decrease to warfarin 2mg today then resume 2mg Mon, Fri & 4mg all others. Check INR in 2 week(s). Patient and/or caregiver verbalizes understanding of anticoagulant dosing instructions and information discussed. Dosing regimen, counseling, and follow-up INR redraw date were provided. Patient reminded to call with questions or any medication changes. Patient instructed to seek medical attention if any major bleeding/bleeding that persists or worsens. Arabella Avendaño RPH 09/01/23 1453 documented in this encounter [facility] 08-18-2023 History of Presen t illness Narrative Result received from [facility] ([place], [place]). INR 3.3 (goal range: 3.0-4.0). Spoke to patient and/or caregiver who reports patient findings: Taking warfarin dosing as documented. Missed or extra doses of warfarin: Yes, patient reports he thinks he missed one dose of warfarin since coming to [place]. He thinks it was approximately 4-5 days ago. Changes to medications: No Changes to lifestyle (diet / alcohol / smoking / activity): No Recent emergency department visit / hospitalization / health changes / new contraindication to current anticoagulant: No Signs/symptoms of bruising/bleeding or clotting: No Upcoming procedures: No Anticoagulant prescription needed: No Seen referring provider in the last year Duration of therapy reviewed Assessment: INR therapeutic but at lower end of range more than likely due to missed dose Plan: Patient instructed to continue warfarin 2 mg Thursday and Thursday, 4 mg all other days. Check INR in 2 week(s). No changes because again thinking the missed dose played a large factor. Patient and/or caregiver verbalizes understanding of anticoagulant dosing instructions and information discussed. Dosing regimen, counseling, and follow-up INR redraw date were provided. Patient reminded to call with questions or any medication changes. Patient instructed to seek medical attention if any major bleeding/bleeding that persists or worsens. Dwight Jacobson RPH 08/18/23 1510 [facility] History of Presen t illness Narrative 15 minute olrq-fr-gjqo follow-up anticoagulation appointment. INR performed in office per protocol. INR 5.2 (goal range: 3.0-4.0). Patient reports: Taking warfarin dosing as documented. Missed or extra doses of warfarin: No Changes to medications: No Changes to lifestyle (diet / alcohol / smoking / activity): No Recent emergency department visit / hospitalization / health changes / new contraindication to current anticoagulant: No Signs/symptoms of bruising/bleeding or clotting or any intolerable adverse events: No Upcoming procedures: No Anticoagulant prescription needed: No Seen referring provider in the last year Duration of therapy reviewed Assessment: Since new range is 3-4 and MD prefers closer to 4, will NOT hold today. He already took his dose, will slightly reduce regimen and recheck in 2 weeks to keep a close eye Plan: Patient instructed to decrease to warfarin 2mg on thu and thu, 4mg all other days. Check INR in 2 week(s[place] in [place] Patient verbalizes understanding of anticoagulant dosing instructions and information discussed. Dosing regimen, counseling, and follow-up appointment were provided to the patient. Patient reminded to call with questions or any medication changes. Patient instructed to seek medical attention if any major bleeding/bleeding that persists or worsens. 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 Long-term (current) use of anticoagulants Mitral valve disease Other and unspecified mitral valve diseases History of mitral valve replacement Heart valve replaced by other means History of aortic valve replacement Heart valve replaced by other means [facility] salvage determiner (current) use of anticoagulants [Z79.01]- Primary Long-term (current) use of anticoagulants Mitral valve disease Other and unspecified mitral valve diseases History of mitral valve replacement Heart valve replaced by other means History of aortic valve replacement Heart valve replaced by other means [facility] filedocument[facility] filedocumented in [facility] filedocumented in [facility] filedocumented in [facility] filedocumented in this encounter [facility] Summary Purpose Family History No Family History Records FoundNo Family History Records FoundNo Family History Records FoundNo Family History Records FoundNo Family History Records FoundNo Family History Records Found Advance Directives No Advanced Directives Records FoundNo Advanced Directives Records FoundNo Advanced Directives Records FoundNo Advanced Directives Records FoundNo Advanced Directives Records FoundNo Advanced Directives Records Found Additional Source Comments (unrecognized sect ion and content) No Status Records FoundNo Status Records FoundNo Status Records FoundNo Status Records FoundNo Status Records FoundNo Status Records Found INFORMATION SOURCE (unrecogn ized section and content) DATE CREATED AUTHOR 02/03/2018 [facility] DATE CREATED AUTHOR AUTHOR'S ORGANIZ ATION 07/13/2021 [facility] DATE CREATED AUTHOR AUTHOR'S ORGANIZ ATION 08/10/2023 [facility] DATE CREATED AUTHOR AUTHOR'S ORGANIZ ATION 12/01/2023 [facility] DATE CREATED AUTHOR AUTHOR'S ORGANIZ ATION 01/23/2024 [facility] DATE CREATED AUTHOR AUTHOR'S ORGANIZ ATION 04/01/2024 [facility] Care Teams (unrecognized sec tion and content) 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 Specialty Start Date End Date Funmilayo Dorsey MD [address] [id number] PCP - General 05/15/17 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 Specialty Start Date End Date Funmilayo Dorsey MD [address] [id number] PCP - General 05/15/17 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 Specialty Start Date End Date Funmilayo Dorsey MD [address] [id number] PCP - General 05/15/17 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 Specialty Start Date End Date Funmilayo Dorsey MD [address] [id number] PCP - General 05/15/17 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 Specialty Start Date End Date Funmilayo Dorsey MD [address] [place] [id number] PCP - General 05/15/17 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 Specialty Start Date End Date Funmilayo Dorsey MD [address] [place] [id number] PCP - General 05/15/17 Reason for Visit (unrecogniz ed section and content) Reason Comments Med Refill FOR RECORDS PERTAINING TO PATIENTS WHO ARE OR HAVE BEEN ENROLLED IN A CHEMICAL DEPENDENCY/SUBSTANCEABUSE PROGRAM, SOME INFORMATION MAY BE OMITTED. This clinical summary was aggregated from multiple sources. Caution should be exercised in using it in the provision of clinical care. This summary normalizes information from multiple sources, and as a consequence, information in this document may materially change the coding, format and clinical context of patient data. In addition, data may be omitted in some cases. CLINICAL DECISIONS SHOULD BE BASED ON THE PRIMARY CLINICAL RECORDS. [employer] provides no warranty or guarantee of the accuracy or completeness of information in this document.
== END 2024-04-17 19:20 | disposition home or self-care (01) ==
PROVIDERS: Emergency Provider Emergency Medicine; PCP Family Medicine
DX: G40.909 Epilepsy, unspecified, not intractable, without status epilepticus (principal); Z79.01 Long term (current) use of anticoagulants
CPT/HCPCS: 36415; 70450; 80053; 83735; 85025; 85610; 93005; 96365; 99285; J1953